=== PATIENT | female | born 1965 | race African-American/Black ===

== ENCOUNTER → 2020-08-19 | Outpatient (CLI) | payer OTHER ==
[~2020-08-19] MED LIST: ATORVASTATIN CA40 MG PO; CUBICIN 500 MG500 MG INJ; FLAGYL500 MG PO; FLORASTOR250 MG PO; GLUCOPHAGE 850850 MG PO; HUMALOG 10100 UNITS/ SC; IBUPROFEN800 MG PO; INVANZ 1 GM VIAL1 GM IV; LANTUS INS100 UTS/M1 SC; LEVEMIR100 UNIT/1 SQ; LISINOPRIL10 MG PO; LORTAB 5-325 M1 EACH PO; METFORMIN HCL1000 MG PO; MOBIC15 MG PO; NEURONTIN 100100 MG PO; NOVOLOG100 UNIT/1 SQ; POVIDONE-IOD28.35 GM TOP; PRINIVIL10 MG PO; VITAMIN C 500500 MG PO
[2020-08-19 13:49] LABS: HEMOGLOBIN 12.2 gm/dl (12.3-15.3); RED BLOOD COUNT 4.14 M/UL (4.00-5.10); WHITE BLOOD COUNT 9.6 K/UL (4.5-11.0)
[2020-08-19 14:12] LABS: BUN/CREATININE RATIO 18 (0-10)
== END ==
LOC: LAB 13:20
PROVIDERS: Emergency Medicine
DX: E08.622 Diabetes mellitus due to underlying condition with other skin ulcer (principal); L03.031 Cellulitis of right toe; M79.89 Other specified soft tissue disorders; M89.8X7 Other specified disorders of bone, ankle and foot
CPT/HCPCS: 36415; 73630; 80053; 83036; 85025; 85652

== ENCOUNTER 2020-08-21 16:51 | Emergency (ER) | payer OTHER, MEDICAID ==
[~2020-08-21 16:51] MED LIST changes: -ATORVASTATIN CA40 MG PO; -CUBICIN 500 MG500 MG INJ; -FLAGYL500 MG PO; -FLORASTOR250 MG PO; -GLUCOPHAGE 850850 MG PO; -HUMALOG 10100 UNITS/ SC; -LANTUS INS100 UTS/M1 SC; -LISINOPRIL10 MG PO; -POVIDONE-IOD28.35 GM TOP
[2020-08-26] MEDS ORDERED: LISINOPRIL10 MG PO (13:53)
[2020-08-26] MEDS ORDERED: POVIDONE-IOD28.35 GM TOP (13:53)
[2020-08-26] MEDS ORDERED: HUMALOG 10100 UNITS/ SC (13:53)
[2020-08-26] MEDS ORDERED: FLAGYL500 MG PO (13:53)
[2020-08-26] MEDS ORDERED: FLORASTOR250 MG PO (13:53)
[2020-08-26] MEDS ORDERED: LANTUS INS100 UTS/M1 SC (13:53)
[2020-08-26] MEDS ORDERED: GLUCOPHAGE 850850 MG PO (13:53)
[2020-08-27] MEDS ORDERED: ATORVASTATIN CA40 MG PO (08:24)
== END 2020-08-21 18:56 | disposition left against medical advice (07) ==
LOC: ER1 16:51
DX: M79.674 Pain in right toe(s) (principal); Z53.21 Procedure and treatment not carried out due to patient leaving prior to being seen by health care provider

== ENCOUNTER 2020-08-22 16:19 | Inpatient (IN) | payer OTHER ==
[~2020-08-22] VITALS: Ht 180.3 cm; Wt 96.6 kg
[2020-08-22 17:13] LABS: HEMOGLOBIN 11.7 gm/dl (12.3-15.3); RED BLOOD COUNT 3.95 M/UL (4.00-5.10); WHITE BLOOD COUNT 10.5 K/UL (4.5-11.0)
[2020-08-23 02:49] LABS: RED BLOOD COUNT 3.83 M/UL (4.00-5.10); WHITE BLOOD COUNT 10.8 K/UL (4.5-11.0)
[2020-08-23 03:16] LABS: BUN/CREATININE RATIO 22 (0-10)
[2020-08-26 06:32] LABS: BUN/CREATININE RATIO 20 (0-10)
[2020-08-26] MEDS ORDERED: LISINOPRIL10 MG PO (13:53)
[2020-08-26] MEDS ORDERED: HUMALOG 10100 UNITS/ SC (13:53)
[2020-08-26] MEDS ORDERED: POVIDONE-IOD28.35 GM TOP (13:53)
[2020-08-26] MEDS ORDERED: GLUCOPHAGE 850850 MG PO (13:53)
[2020-08-26] MEDS ORDERED: FLAGYL500 MG PO (13:53)
[2020-08-26] MEDS ORDERED: LANTUS INS100 UTS/M1 SC (13:53)
[2020-08-26] MEDS ORDERED: FLORASTOR250 MG PO (13:53)
[2020-08-27] MEDS ORDERED: ATORVASTATIN CA40 MG PO (08:24)
[2020-08-27 09:02] LABS: HEMOGLOBIN 11.5 gm/dl (12.3-15.3); RED BLOOD COUNT 3.95 M/UL (4.00-5.10); WHITE BLOOD COUNT 11.9 K/UL (4.5-11.0)
[2020-08-27 09:21] LABS: BUN/CREATININE RATIO 27 (0-10)
[2020-08-28 03:24] LABS: HEMOGLOBIN 10.9 gm/dl (12.3-15.3); RED BLOOD COUNT 3.76 M/UL (4.00-5.10); WHITE BLOOD COUNT 10.7 K/UL (4.5-11.0)
[2020-08-28 04:09] LABS: BUN/CREATININE RATIO 29 (0-10)
[2020-08-28] MEDS ORDERED: CUBICIN 500 MG500 MG INJ (10:32)
[2020-08-28] MEDS ORDERED: LISINOPRIL10 MG PO (12:55)
[2020-08-28] MEDS ORDERED: LANTUS INS100 UTS/M1 SC (12:55)
[2020-08-28] MEDS ORDERED: ATORVASTATIN CA40 MG PO (12:55)
[2020-08-28] MEDS ORDERED: HUMALOG 10100 UNITS/ SC (12:55)
[2020-08-28] MEDS ORDERED: GLUCOPHAGE 850850 MG PO (12:55)
[2020-08-28] MEDS ORDERED: FLORASTOR250 MG PO (12:55)
== END 2020-08-28 14:39 | disposition home or self-care (01) | DRG 264 ==
LOC: ER1 16:19 → M/S 18:36 → CDU 18:36 → M/S 20:54
PROVIDERS: Physician Assistant; ADMIT Internal Medicine
PROC: 0JBQ0ZZ Excision of Right Foot Subcutaneous Tissue and Fascia, Open Approach (ICD-10-PCS; principal; 2020-08-25)
PROC: 02HV33Z Insertion of Infusion Device into Superior Vena Cava, Percutaneous Approach (ICD-10-PCS; 2020-08-26)
PROC: B548ZZA Ultrasonography of Superior Vena Cava, Guidance (ICD-10-PCS; 2020-08-26)
PROC: 0HBMXZZ Excision of Right Foot Skin, External Approach (ICD-10-PCS; 2020-08-28)
PROC: 0HBRXZZ Excision of Toe Nail, External Approach (ICD-10-PCS; 2020-08-28)
PROC: 0HBRXZZ Excision of Toe Nail, External Approach (ICD-10-PCS; 2020-08-28)
PROC: 0HBRXZZ Excision of Toe Nail, External Approach (ICD-10-PCS; 2020-08-28)
PROC: 0HBRXZZ Excision of Toe Nail, External Approach (ICD-10-PCS; 2020-08-28)
PROC: 0HBRXZZ Excision of Toe Nail, External Approach (ICD-10-PCS; 2020-08-28)
DX: E11.52 Type 2 diabetes mellitus with diabetic peripheral angiopathy with gangrene (principal); M86.8X7 Other osteomyelitis, ankle and foot; I96 Gangrene, not elsewhere classified; E11.69 Type 2 diabetes mellitus with other specified complication; E11.621 Type 2 diabetes mellitus with foot ulcer; Z20.822 Contact with and (suspected) exposure to COVID-19; I10 Essential (primary) hypertension; E66.01 Morbid (severe) obesity due to excess calories; E78.5 Hyperlipidemia, unspecified; B95.62 Methicillin resistant Staphylococcus aureus infection as the cause of diseases classified elsewhere; F17.210 Nicotine dependence, cigarettes, uncomplicated; E11.65 Type 2 diabetes mellitus with hyperglycemia; E11.628 Type 2 diabetes mellitus with other skin complications; L03.031 Cellulitis of right toe; E11.42 Type 2 diabetes mellitus with diabetic polyneuropathy; B35.1 Tinea unguium; L84 Corns and callosities; Z80.0 Family history of malignant neoplasm of digestive organs; Z91.19 Patient's noncompliance with other medical treatment and regimen; Z68.29 Body mass index [BMI] 29.0-29.9, adult
CPT/HCPCS: 36415; 73630; 73718; 80048; 80053; 80202; 81001; 82962; 83540; 83550; 83605; 84439; 84443; 85025; 85652; 86140; 87040; 87070; 87077; 87186; 87205; 93925; 96365; 96366; 96367; 96368; 96375; 99285; J0692; J1650; J3370; J7050; J7070; U0002

== ENCOUNTER → 2020-08-29 | Outpatient (CLI) | payer OTHER ==
[~2020-08-29] MED LIST changes: +ATORVASTATIN CA40 MG PO; +CUBICIN 500 MG500 MG INJ; +FLAGYL500 MG PO; +FLORASTOR250 MG PO; +GLUCOPHAGE 850850 MG PO; +HUMALOG 10100 UNITS/ SC; +LANTUS INS100 UTS/M1 SC; +LISINOPRIL10 MG PO; +POVIDONE-IOD28.35 GM TOP
== END ==
LOC: EROP 10:26
DX: A49.02 Methicillin resistant Staphylococcus aureus infection, unspecified site (principal)
CPT/HCPCS: 36415; 82550; 96365; J0878

== ENCOUNTER → 2020-08-30 | Outpatient (CLI) | payer OTHER | LOC: EROP 11:30 | DX: A49.02 Methicillin resistant Staphylococcus aureus infection, unspecified site (principal) | CPT/HCPCS: 96365; J0878 ==

== ENCOUNTER → 2020-08-31 | Outpatient (CLI) | payer OTHER ==
[~2020-08-31] VITALS: Ht 180.3 cm; Wt 96.6 kg
== END ==
LOC: OPSV 07:29
DX: M86.9 Osteomyelitis, unspecified (principal); A49.02 Methicillin resistant Staphylococcus aureus infection, unspecified site
CPT/HCPCS: 96365; J0878

== ENCOUNTER → 2020-09-01 | Outpatient (CLI) | payer OTHER ==
[~2020-09-01] VITALS: Ht 180.3 cm; Wt 96.6 kg
== END ==
LOC: OPSV 07:00
DX: A49.02 Methicillin resistant Staphylococcus aureus infection, unspecified site (principal)
CPT/HCPCS: 96365; J0878

== ENCOUNTER → 2020-09-02 | Outpatient (CLI) | payer OTHER ==
[~2020-09-02] VITALS: Ht 180.3 cm; Wt 96.6 kg
== END ==
LOC: OPSV 07:00
DX: A49.02 Methicillin resistant Staphylococcus aureus infection, unspecified site (principal)
CPT/HCPCS: 96365; J0878

== ENCOUNTER → 2020-09-03 | Outpatient (CLI) | payer OTHER ==
[~2020-09-03] VITALS: Ht 180.3 cm; Wt 96.6 kg
== END ==
LOC: OPSV 07:00
DX: A49.02 Methicillin resistant Staphylococcus aureus infection, unspecified site (principal)
CPT/HCPCS: 96365; J0878

== ENCOUNTER → 2020-09-04 | Outpatient (CLI) | payer OTHER ==
[~2020-09-04] VITALS: Ht 180.3 cm; Wt 96.6 kg
[2020-09-04 07:56] LABS: BUN/CREATININE RATIO 23 (0-10)
[2020-09-04 08:05] LABS: HEMOGLOBIN 11.6 gm/dl (12.3-15.3); RED BLOOD COUNT 4.12 M/UL (4.00-5.10); WHITE BLOOD COUNT 9.5 K/UL (4.5-11.0)
== END ==
LOC: OPSV 07:00
PROVIDERS: Internal Medicine
DX: A49.02 Methicillin resistant Staphylococcus aureus infection, unspecified site (principal)
CPT/HCPCS: 80053; 82550; 85025; 85652; 86140; 96365; J0878

== ENCOUNTER → 2020-09-05 | Outpatient (CLI) | payer OTHER ==
[~2020-09-05] VITALS: Ht 180.3 cm; Wt 96.6 kg
== END ==
LOC: OPSV 08:00
DX: A49.02 Methicillin resistant Staphylococcus aureus infection, unspecified site (principal)
CPT/HCPCS: 96365; J0878

== ENCOUNTER → 2020-09-06 | Outpatient (CLI) | payer OTHER ==
[~2020-09-06] VITALS: Ht 180.3 cm; Wt 96.6 kg
== END ==
LOC: OPSV 08:00
DX: A49.02 Methicillin resistant Staphylococcus aureus infection, unspecified site (principal)
CPT/HCPCS: 96365; J0878

== ENCOUNTER → 2020-09-07 | Outpatient (CLI) | payer OTHER ==
[~2020-09-07] VITALS: Ht 180.3 cm; Wt 96.6 kg
== END ==
LOC: OPSV 07:00
DX: A49.02 Methicillin resistant Staphylococcus aureus infection, unspecified site (principal)
CPT/HCPCS: 96365; J0878

== ENCOUNTER → 2020-09-08 | Outpatient (CLI) | payer OTHER ==
[~2020-09-08] VITALS: Ht 180.3 cm; Wt 96.6 kg
== END ==
LOC: OPSV 07:00
DX: A49.02 Methicillin resistant Staphylococcus aureus infection, unspecified site (principal)
CPT/HCPCS: 96365; J0878

== ENCOUNTER → 2020-09-09 | Outpatient (CLI) | payer OTHER ==
[~2020-09-09] VITALS: Ht 180.3 cm; Wt 96.6 kg
== END ==
LOC: OPSV 07:00
DX: A49.02 Methicillin resistant Staphylococcus aureus infection, unspecified site (principal)
CPT/HCPCS: 36415; 96365; J0878

== ENCOUNTER → 2020-09-10 | Outpatient (CLI) | payer OTHER ==
[~2020-09-10] VITALS: Ht 180.3 cm; Wt 96.6 kg
== END ==
LOC: OPSV 06:54
DX: A49.02 Methicillin resistant Staphylococcus aureus infection, unspecified site (principal)
CPT/HCPCS: 96365; J0878

== ENCOUNTER → 2020-09-11 | Outpatient (CLI) | payer OTHER ==
[~2020-09-11] VITALS: Ht 180.3 cm; Wt 96.6 kg
[2020-09-11 07:55] LABS: HEMOGLOBIN 11.7 gm/dl (12.3-15.3); RED BLOOD COUNT 4.15 M/UL (4.00-5.10)
[2020-09-11 08:13] LABS: BUN/CREATININE RATIO 27 (0-10)
== END ==
LOC: OPSV 07:00
PROVIDERS: Internal Medicine
DX: A49.02 Methicillin resistant Staphylococcus aureus infection, unspecified site (principal)
CPT/HCPCS: 80053; 85027; 85652; 86140; 96365; J0878

== ENCOUNTER → 2020-09-12 | Outpatient (CLI) | payer OTHER ==
[~2020-09-12] VITALS: Ht 180.3 cm; Wt 96.6 kg
== END ==
LOC: OPSV 08:00
DX: A49.02 Methicillin resistant Staphylococcus aureus infection, unspecified site (principal)
CPT/HCPCS: 96365; J0878

== ENCOUNTER → 2020-09-13 | Outpatient (CLI) | payer OTHER ==
[~2020-09-13] VITALS: Ht 180.3 cm; Wt 96.6 kg
== END ==
LOC: OPSV 08:00
DX: A49.02 Methicillin resistant Staphylococcus aureus infection, unspecified site (principal)
CPT/HCPCS: 96365; J0878

== ENCOUNTER → 2020-09-14 | Outpatient (CLI) | payer OTHER ==
[~2020-09-14] VITALS: Ht 180.3 cm; Wt 96.6 kg
== END ==
LOC: OPSV 07:00
DX: A49.02 Methicillin resistant Staphylococcus aureus infection, unspecified site (principal)
CPT/HCPCS: 96365; J0878

== ENCOUNTER → 2020-09-15 | Outpatient (CLI) | payer OTHER ==
[~2020-09-15] VITALS: Ht 180.3 cm; Wt 96.6 kg
== END ==
LOC: OPSV 06:48
DX: Z22.322 Carrier or suspected carrier of Methicillin resistant Staphylococcus aureus (principal)
CPT/HCPCS: 96365; J0878

== ENCOUNTER → 2020-09-16 | Outpatient (CLI) | payer OTHER ==
[~2020-09-16] VITALS: Ht 180.3 cm; Wt 96.6 kg
== END ==
LOC: OPSV 06:48
DX: Z22.322 Carrier or suspected carrier of Methicillin resistant Staphylococcus aureus (principal)
CPT/HCPCS: 96365; J0878

== ENCOUNTER → 2020-09-17 | Outpatient (CLI) | payer OTHER ==
[~2020-09-17] VITALS: Ht 180.3 cm; Wt 96.6 kg
== END ==
LOC: OPSV 06:53
DX: A49.02 Methicillin resistant Staphylococcus aureus infection, unspecified site (principal)
CPT/HCPCS: 96365; J0878

== ENCOUNTER → 2020-09-18 | Outpatient (CLI) | payer OTHER ==
[~2020-09-18] VITALS: Ht 180.3 cm; Wt 96.6 kg
[2020-09-18 07:45] LABS: HEMOGLOBIN 11.5 gm/dl (12.3-15.3); RED BLOOD COUNT 4.06 M/UL (4.00-5.10); WHITE BLOOD COUNT 10.8 K/UL (4.5-11.0)
== END ==
LOC: OPSV 06:52
PROVIDERS: Internal Medicine
DX: A49.02 Methicillin resistant Staphylococcus aureus infection, unspecified site (principal); M86.9 Osteomyelitis, unspecified
CPT/HCPCS: 80053; 85025; 85652; 86140; 96365; J0878

== ENCOUNTER → 2020-09-19 | Outpatient (CLI) | payer OTHER | LOC: OPSV 08:00 | DX: A49.02 Methicillin resistant Staphylococcus aureus infection, unspecified site (principal) | CPT/HCPCS: 96365; J0878 ==

== ENCOUNTER → 2020-09-20 | Outpatient (CLI) | payer OTHER | LOC: OPSV 08:00 | DX: Z22.322 Carrier or suspected carrier of Methicillin resistant Staphylococcus aureus (principal) | CPT/HCPCS: 96365; J0878 ==

== ENCOUNTER → 2020-09-21 | Outpatient (CLI) | payer OTHER ==
[~2020-09-21] VITALS: Ht 180.3 cm; Wt 96.6 kg
== END ==
LOC: OPSV 06:56
DX: A49.02 Methicillin resistant Staphylococcus aureus infection, unspecified site (principal)
CPT/HCPCS: 96365; J0878

== ENCOUNTER → 2020-09-22 | Outpatient (CLI) | payer OTHER ==
[~2020-09-22] VITALS: Ht 180.3 cm; Wt 96.6 kg
== END ==
LOC: OPSV 06:54
DX: A49.02 Methicillin resistant Staphylococcus aureus infection, unspecified site (principal)
CPT/HCPCS: 96365; J0878

== ENCOUNTER → 2020-09-23 | Outpatient (CLI) | payer OTHER ==
[~2020-09-23] VITALS: Ht 180.3 cm; Wt 96.6 kg
== END ==
LOC: OPSV 06:47
DX: Z22.322 Carrier or suspected carrier of Methicillin resistant Staphylococcus aureus (principal)
CPT/HCPCS: 96365; J0878

== ENCOUNTER → 2020-09-24 | Outpatient (CLI) | payer OTHER ==
[~2020-09-24] VITALS: Ht 180.3 cm; Wt 96.6 kg
== END | disposition home or self-care (01) ==
LOC: OPSV 07:00
DX: T85.618A Breakdown (mechanical) of other specified internal prosthetic devices, implants and grafts, initial encounter (principal)
CPT/HCPCS: 96365; J0878

== ENCOUNTER → 2020-09-25 | Outpatient (CLI) | payer OTHER ==
[~2020-09-25] VITALS: Ht 180.3 cm; Wt 96.6 kg
[2020-09-25 07:55] LABS: HEMOGLOBIN 11.8 gm/dl (12.3-15.3); RED BLOOD COUNT 4.06 M/UL (4.00-5.10); WHITE BLOOD COUNT 8.3 K/UL (4.5-11.0)
[2020-09-25 07:58] LABS: BUN/CREATININE RATIO 26 (0-10)
== END ==
LOC: OPSV 06:59
PROVIDERS: Internal Medicine
DX: A49.02 Methicillin resistant Staphylococcus aureus infection, unspecified site (principal)
CPT/HCPCS: 80053; 85025; 85652; 86140; 96365; J0878

== ENCOUNTER → 2020-09-26 | Outpatient (CLI) | payer OTHER | LOC: OPSV 08:00 | DX: A49.02 Methicillin resistant Staphylococcus aureus infection, unspecified site (principal) | CPT/HCPCS: 96365; J0878 ==

== ENCOUNTER → 2020-09-27 | Outpatient (CLI) | payer OTHER ==
[~2020-09-27] VITALS: Ht 180.3 cm; Wt 96.6 kg
== END ==
LOC: OPSV 08:00
DX: A49.02 Methicillin resistant Staphylococcus aureus infection, unspecified site (principal)
CPT/HCPCS: 96365; J0878

== ENCOUNTER → 2020-09-28 | Outpatient (CLI) | payer OTHER ==
[~2020-09-28] VITALS: Ht 180.3 cm; Wt 96.6 kg
== END ==
LOC: OPSV 07:00
DX: A49.02 Methicillin resistant Staphylococcus aureus infection, unspecified site (principal)
CPT/HCPCS: 96365; J0878

== ENCOUNTER → 2020-09-29 | Outpatient (CLI) | payer OTHER ==
[~2020-09-29] VITALS: Ht 180.3 cm; Wt 96.6 kg
== END ==
LOC: OPSV 06:45
DX: A49.02 Methicillin resistant Staphylococcus aureus infection, unspecified site (principal)
CPT/HCPCS: 82550; 96365; J0878

== ENCOUNTER → 2020-09-30 | Outpatient (CLI) | payer OTHER ==
[~2020-09-30] VITALS: Ht 180.3 cm; Wt 96.6 kg
== END ==
LOC: OPSV 06:48
DX: A49.02 Methicillin resistant Staphylococcus aureus infection, unspecified site (principal)
CPT/HCPCS: 96365; J0878

== ENCOUNTER → 2020-10-01 | Outpatient (CLI) | payer OTHER ==
[~2020-10-01] VITALS: Ht 180.3 cm; Wt 96.6 kg
== END ==
LOC: OPSV 07:00
DX: A49.02 Methicillin resistant Staphylococcus aureus infection, unspecified site (principal)
CPT/HCPCS: 96365; J0878

== ENCOUNTER → 2020-10-02 | Outpatient (CLI) | payer OTHER ==
[~2020-10-02] VITALS: Ht 180.3 cm; Wt 96.6 kg
[2020-10-02 08:17] LABS: HEMOGLOBIN 11.4 gm/dl (12.3-15.3); RED BLOOD COUNT 3.89 M/UL (4.00-5.10); WHITE BLOOD COUNT 9.1 K/UL (4.5-11.0)
== END ==
LOC: OPSV 06:57
PROVIDERS: Internal Medicine
DX: M86.9 Osteomyelitis, unspecified (principal); B95.62 Methicillin resistant Staphylococcus aureus infection as the cause of diseases classified elsewhere
CPT/HCPCS: 80053; 85025; 85652; 86140; 96365; J0878

== ENCOUNTER → 2020-10-03 | Outpatient (CLI) | payer OTHER ==
[~2020-10-03] VITALS: Ht 180.3 cm; Wt 96.6 kg
== END ==
LOC: OPSV 08:00
DX: A49.02 Methicillin resistant Staphylococcus aureus infection, unspecified site (principal)
CPT/HCPCS: 96365; J0878

== ENCOUNTER → 2020-10-04 | Outpatient (CLI) | payer OTHER ==
[~2020-10-04] VITALS: Ht 180.3 cm; Wt 96.6 kg
== END ==
LOC: OPSV 08:00
DX: A49.02 Methicillin resistant Staphylococcus aureus infection, unspecified site (principal)
CPT/HCPCS: 96365; J0878

== ENCOUNTER → 2020-10-05 | Outpatient (CLI) | payer OTHER ==
[~2020-10-05] VITALS: Ht 180.3 cm; Wt 96.6 kg
== END ==
LOC: OPSV 07:00
DX: A49.02 Methicillin resistant Staphylococcus aureus infection, unspecified site (principal)
CPT/HCPCS: 96365; J0878

== ENCOUNTER → 2020-10-06 | Outpatient (CLI) | payer OTHER ==
[~2020-10-06] VITALS: Ht 180.3 cm; Wt 96.6 kg
== END ==
LOC: OPSV 06:52
DX: A49.02 Methicillin resistant Staphylococcus aureus infection, unspecified site (principal)
CPT/HCPCS: 96365; J0878

== ENCOUNTER → 2020-10-07 | Outpatient (CLI) | payer OTHER | LOC: OPSV 07:00 | DX: Z45.2 Encounter for adjustment and management of vascular access device (principal) | CPT/HCPCS: G0463 ==

== ENCOUNTER → 2020-11-05 | Outpatient (CLI) | payer OTHER | LOC: MAMO 08:40 | DX: Z12.31 Encounter for screening mammogram for malignant neoplasm of breast (principal) | CPT/HCPCS: 77063; 77067 ==

== ENCOUNTER 2021-07-11 03:36 | Emergency (ER) | payer OTHER ==
[2021-07-11 04:30] LABS: HEMOGLOBIN 12.6 gm/dl (12.3-15.3); RED BLOOD COUNT 4.24 M/UL (4.00-5.10); WHITE BLOOD COUNT 13.5 K/UL (4.5-11.0)
[2021-07-11 07:50] LABS: BUN/CREATININE RATIO 19 (0-10)
[2021-07-11] MEDS ORDERED: VIBRAMYCIN 100100 MG PO (11:23)
[2021-07-11] MEDS ORDERED: LASIX40 MG PO (11:23)
[2021-07-11] MEDS ORDERED: K-TAB ER20 MEQ PO (11:27)
== END 2021-07-11 12:06 | disposition home or self-care (01) ==
LOC: ER1 03:36
PROVIDERS: Physician Assistant
DX: J18.9 Pneumonia, unspecified organism (principal); I11.0 Hypertensive heart disease with heart failure; I50.9 Heart failure, unspecified; E11.9 Type 2 diabetes mellitus without complications; F17.210 Nicotine dependence, cigarettes, uncomplicated; Z20.822 Contact with and (suspected) exposure to COVID-19
CPT/HCPCS: 36600; 71045; 80053; 82550; 82553; 82803; 83605; 83615; 83874; 83880; 84484; 85025; 87040; 93005; 94664; 94760; 96374; 96375; 99285; J0360; J1100; J1940; Q9967; U0002

== ENCOUNTER → 2021-08-31 | Outpatient (CLI) | payer OTHER ==
[~2021-08-31] MED LIST changes: +K-TAB ER20 MEQ PO; +LASIX40 MG PO; +VIBRAMYCIN 100100 MG PO
== END ==
LOC: KOH-I 08-27 09:30
DX: R94.4 Abnormal results of kidney function studies (principal); R06.4 Hyperventilation
CPT/HCPCS: 71250; 76775